=== PATIENT | female | born 1970 | race Asian ===

== ENCOUNTER 2017-08-04 01:44 | Inpatient (IN) | payer BC ==
[2017-08-04] MEDS ORDERED: ONDANSETRON 4 MG/2 ML VIAL IVP ONE (01:52)
[2017-08-04] MEDS ORDERED: NS 1,000 ML IV ONE ×2 (01:52→03:26)
[2017-08-04] MEDS ORDERED: DIAZEPAM 10 MG/2 ML SYR IVP ONE (01:53)
[2017-08-04] MEDS ORDERED: MECLIZINE HCL 25 MG TAB PO ONE (01:54)
--- NOTE | 2017-08-04 01:58 | EDPHY ---
H & P HPI/ROS: HPI CHIEF COMPLAINT: Nausea, vomiting, room spinning 7:00 p.m. or approximately 7 hr ago. HISTORY OF PRESENT ILLNESS: Patient is a very pleasant 47-year-old female she is visiting from [place] she just arrived to [facility] yesterday. She is here for the weekend with her friends. She presents emergency room with dizziness that she describes as room spinning that started at 7:00 p.m. after she started having nausea with vomiting. She distally reports she had some left -sided headache very mild throbbing 3/10. She initially reports that around 7: 00 p.m. she did not feel well she was somewhat nauseous she skipped dinner. She then began feeling worse with room spinning and dizziness and lightheadedness. She then vomited 3 times prior to arrival. She denies any chest pain. Denies neck pain. Pain in her head is 3/10 left-sided throbbing in nature. She states when she goes to move her head or go to sit up the dizziness room spinning sensation around her gets worse. She endorses 1 Rowan around 1:00 p.m.. She denies illicit drugs specifically denies marijuana denies tobacco or large consumption of alcohol. Denies chest pain. She denies focal numbness or tingling. Denies focal weakness. She does state when she walks she does feel like she is being pulled to the left. Past Medical History: Denies medical history Past Surgical History: Denies surgical history Social History: Denies daily use Family History: Noncontributory ROS REVIEW OF SYSTEMS: A comprehensive 10 point review of systems is otherwise negative aside from elements mentioned in the history of present illness. Exam Constitutional appears nontoxic, but nauseous triage nursing summary reviewed, vital signs reviewed, awake/alert. Hypertensive upon arrival Eyes normal conjunctivae and sclera, EOMI, PERRLA. HENT normal inspection, atraumatic, moist mucus membranes, no epistaxis, neck supple/ no meningismus, no raccoon eyes. Respiratory clear to auscultation bilaterally, normal breath sounds, no respiratory distress, no wheezing. Cardiovascular rate normal, regular rhythm, no murmur, no edema, distal pulses normal. Gastrointestinal soft, non-tender, no rebound, no guarding, normal bowel sounds, no distension, no pulsatile mass. Genitourinary no CVA tenderness. Musculoskeletal no midline vertebral tenderness, full range of motion, no calf swelling, no tenderness of extremities, no meningismus, good pulses, neurovascularly intact. Skin pink, warm, & dry, no rash, skin atraumatic. Neurologic on exam she does have vertical nystagmus seen. Additionally she also has some horizontal nystagmus. Otherwise her neurological exam is unremarkable. awake, alert and oriented x 3, AAOx3, moves all 4 extremities equally, motor intact, sensory intact, CN II-XII intact, normal cerebellar, normal vision, normal speech. Psychiatric normal mood/affect. Heme/Lymph/Immune no lymphadenopathy. Differential Diagnosis: Includes but is not limited to in a particular order benign positional vertigo, cerebellar stroke, electrolyte disturbance, dehydration, altitude illness, infection Medical Decision Making: Plan for this patient IV established with IV fluid bolus, 1 L normal saline, IV Zofran for nausea, meclizine and Valium to see if this improves her dizziness, check blood work, urinalysis, CT head without contrast rule out bleed, MRI to evaluate posterior cerebellar region for cerebellar infarct. Re-evaluation: EKG interpretation by me on record in [facility] system. Impression time of EKG 2:05 a.m., sinus rhythm rate of 79. Diffuse T-wave abnormalities specifically seen in V1 V2 V3 V4 lead 3 and AVF. No old EKG to compare this to. There is no ST elevation. CT scan head without contrast called to me by Dr. Irvin negative for acute bleed. ED x-ray chest one view negative cardiopulmonary disease. 0336: I did update the patient about her dizziness and results of her MRI and CT. MRI does not show a cerebellar infarct. CT scan is unremarkable bleed. Blood work is reassuring. Will admit to the hospitalist service. Reason for admission ongoing dizziness. Unable to move her head. Ongoing nausea vomiting. Spoke with the hospitalist service Dr. Holm will admit. Source: Patient, EMS Constitutional: Initial Vital Signs Temperature (C) 36.6 C 08/04/17 01:40 Heart Rate 69 08/04/17 01:40 Respiratory Rate 18 08/04/17 01:40 Blood Pressure 182/106 H 08/04/17 01:40 O2 Sat (%) 98 08/04/17 01:40 O2 Delivery Mode Room Air Allergies/Adverse Reactions: No Known Allergies Allergy (Unverified 08/04/17 01:56) Home Medications: Medication Instructions Recorded NK [No Known Home Meds] 08/04/17 Medical Decision Making - Data Points Laboratory Results: Laboratory Results 08/04/17 02:00 08/04/17 02:00 08/04/17 08/04/17 08/04/17 02:00 02:00 02:00 WBC RBC Hgb Hct MCV MCH MCHC RDW Plt Count MPV Neut % (Auto) Lymph % (Auto) [place] % (Auto) Eos % (Auto) Baso % (Auto) Nucleat RBC Rel Count Absolute Neuts (auto) Absolute Lymphs (auto) Absolute Monos (auto) Absolute Eos (auto) Absolute Basos (auto) Absolute Nucleated RBC Immature Gran % Immature Gran # PT 12.4 SEC SEC (12.0-15.0) INR 0.90 (0.83-1.16) Sodium 142 mEq/L mEq/L (134-144) Potassium 3.5 mEq/L mEq/L (3.5-5.2) Chloride 106 mEq/L mEq/L (97-110) Carbon Dioxide 21 mEq/l L mEq/l (22-31) Anion Gap 15 mEq/L mEq/L (8-16) BUN 11 mg/dL mg/dL (7-23) Creatinine 0.6 mg/dL mg/dL (0.6-1.0) Estimated GFR > 60 Glucose 173 mg/dL H mg/dL (70-100) Calcium 9.4 mg/dL mg/dL (8.5-10.4) Troponin I < 0.012 ng/mL ng/mL (0.000-0.034) Beta HCG, Qual NEGATIVE Ethyl Alcohol < 10 mg/dL mg/dL (0-10) 08/04/17 02:00 WBC 8.94 10^3/uL 10^3/uL (3.80-9.50) RBC 5.21 10^6/uL 10^6/uL (4.18-5.33) Hgb 12.9 g/dL g/dL (12.6-16.3) Hct 39.5 % % (38.0-47.0) MCV 75.8 fL L fL (81.5-99.8) MCH 24.8 pg L pg (27.9-34.1) MCHC 32.7 g/dL g/dL (32.4-36.7) RDW 15.2 % % (11.5-15.2) Plt Count 336 10^3/uL 10^3/uL (150-400) MPV 9.8 fL fL (8.7-11.7) Neut % (Auto) 70.9 % % (39.3-74.2) Lymph % (Auto) 21.7 % % (15.0-45.0) [place] % (Auto) 5.9 % % (4.5-13.0) Eos % (Auto) 0.6 % % (0.6-7.6) Baso % (Auto) 0.7 % % (0.3-1.7) Nucleat RBC Rel Count 0.0 % % (0.0-0.2) Absolute Neuts (auto) 6.34 10^3/uL 10^3/uL (1.70-6.50) Absolute Lymphs (auto) 1.94 10^3/uL 10^3/uL (1.00-3.00) Absolute Monos (auto) 0.53 10^3/uL 10^3/uL (0.30-0.80) Absolute Eos (auto) 0.05 10^3/uL 10^3/uL (0.03-0.40) Absolute Basos (auto) 0.06 10^3/uL 10^3/uL (0.02-0.10) Absolute Nucleated RBC 0.00 10^3/uL 10^3/uL (0-0.01) Immature Gran % 0.2 % % (0.0-1.1) Immature Gran # 0.02 10^3/uL 10^3/uL (0.00-0.10) PT INR Sodium Potassium Chloride Carbon Dioxide Anion Gap BUN Creatinine Estimated GFR Glucose Calcium Troponin I Beta HCG, Qual Ethyl Alcohol Medications Given: Discontinued Medications Diazepam (Valium Injection) 2.5 mg IVP EDNOW ONE Stop: 08/04/17 01:54 Last Admin: 08/04/17 02:39 Dose: 2.5 mg Sodium Chloride (Ns) 1,000 mls @ 0 mls/hr IV ONCE ONE; Wide Open PRN Reason: Protocol Stop: 08/04/17 01:53 Last Admin: 08/04/17 02:36 Dose: 1,000 mls Meclizine HCl (Meclizine Hcl) 25 mg PO EDNOW ONE Stop: 08/04/17 01:55 Last Admin: 08/04/17 02:44 Dose: 25 mg Ondansetron HCl (Zofran) 4 mg IVP EDNOW ONE Stop: 08/04/17 01:53 Last Admin: 08/04/17 02:36 Dose: 4 mg Departure - Departure Disposition: [facility] Inpatient Acute Clinical Impression: Vertigo Condition: Fair
--- NOTE | 2017-08-04 02:06 | CPEKG ---
Heart Rate: 79 RR Interval: 759 P-R Interval: 156 QRSD Interval: 94 QT Interval: 444 QTC Interval: 510 P [place]: 26 QRS [place]: 6 T Wave [place]: -25 EKG Severity - ABNORMAL ECG - EKG Impression: SINUS RHYTHM EKG Impression: NONSPECIFIC T ABNORMALITIES, INFERIOR LEADS EKG Impression: BORDERLINE PROLONGED QT INTERVAL Electronically Signed By: Andrew aDmon 04-Aug-2017 07:06:53
[2017-08-04 02:16] LABS: % IMMATURE GRANULYOCYTES 0.2 % (0.0-1.1); ABSOLUTE IMMATURE GRANULOCYTES 0.02 10^3/uL (0.00-0.10); ADD DIFF? NO; ADD MORPH? NO; ADD SCAN? NO; ATYPICAL LYMPHOCYTE FLAG 0 (0-99); FRAGMENT RBC FLAG 20 (0-99); HEMATOCRIT 39.5 % (38.0-47.0); HEMOGLOBIN 12.9 g/dL (12.6-16.3); LEFT SHIFT FLG 0 (0-99); LIPEMIA HEMOLYSIS FLAG 80 (0-99); MEAN CELL HEMOGLOBIN 24.8 pg (27.9-34.1); MEAN CELL HEMOGLOBIN CONCENTR. 32.7 g/dL (32.4-36.7); MEAN CELL VOLUME 75.8 fL (81.5-99.8); MEAN PLATELET VOLUME 9.8 fL (8.7-11.7); PLATELET CLUMPS FLAG 20 (0-99); PLATELET COUNT 336 10^3/uL (150-400); RED BLOOD CELL COUNT 5.21 10^6/uL (4.18-5.33); RED CELL DISTRIBUTION WIDTH 15.2 % (11.5-15.2)
[2017-08-04 02:23] LABS: ANION GAP 15 mEq/L (8-16); CALCIUM 9.4 mg/dL (8.5-10.4); CARBON DIOXIDE 21 mEq/l (22-31); CHLORIDE 106 mEq/L (97-110); CREATININE 0.6 mg/dL (0.6-1.0); ETHANOL SERUM < 10 mg/dL (0-10); GLOMERULAR FILTRATION RATE > 60; GLUCOSE 173 mg/dL (70-100); POTASSIUM 3.5 mEq/L (3.5-5.2); SODIUM 142 mEq/L (134-144)
[2017-08-04 02:25] LABS: INR 0.9 (0.83-1.16); PROTIME(PATIENT) 12.4 SEC (12.0-15.0)
[2017-08-04 02:34] LABS: TROPONIN I < 0.012 ng/mL (0.000-0.034)
[2017-08-04] MEDS ORDERED: ONDANSETRON 4 MG/2 ML VIAL IVP PRN (03:26)
[2017-08-04] MEDS ORDERED: ONDANSETRON DISINTEGRATING 4 MG TAB PO PRN (03:26)
--- NOTE | 2017-08-04 03:44 | PDGENHP ---
History and Physical - Chief Complaint Dizziness - History of Present Illness 47 yo F w/ no PMHx present with dizziness. Symptoms started this afternoon. She feels like the room is spinning around her and she has been severely symptomatic. Of note she had URI symptoms for a few days before traveling to [place] from [place]. She underwent a CT and MRI in the ED, both of which were normal. She remains symptomatic after meclizine and Valium so she was admitted for observation noting her inability to ambulate. History Information - Allergies/Home Medication List Allergies/Adverse Reactions: No Known Allergies Allergy (Unverified 08/04/17 01:56) Home Medications: NK [No Known Home Meds] 08/04/17 [Last Taken Unknown] I have personally reviewed and updated: family history, medical history - Past Medical History no pertinent PMH - Family History Additional family history: Denies family hx of vertigo - Social History Smoking Status: Never smoked Review of Systems Review of Systems: ROS: 10pt was reviewed & negative except for what was stated in HPI & below Physical Exam Physical Exam: Temp Pulse Resp BP Pulse Ox 36.6 C 69 18 182/106 H 98 08/04/17 01:40 08/04/17 01:40 08/04/17 01:40 08/04/17 01:40 08/04/17 01:40 Constitutional: appears nourished, uncomfortable Eyes: PERRL, EOMI, other (R end-stage horizontal nystagmus) Ears, Nose, Mouth, Throat: moist mucous membranes, no oral mucosal ulcers Cardiovascular: regular rate and rhythym, no murmur, rub, or gallop Respiratory: no respiratory distress, clear to auscultation Skin: warm, normal color Musculoskeletal: full muscle strength, no muscle tenderness Neurologic: AAOx3, CN II-XII Intact Psychiatric: interacting appropriately, not anxious Lab Data & Imaging Review 08/04/17 02:00 08/04/17 02:00 WBC 8.94 10^3/uL (3.80-9.50) 08/04/17 02:00 RBC 5.21 10^6/uL (4.18-5.33) 08/04/17 02:00 Hgb 12.9 g/dL (12.6-16.3) 08/04/17 02:00 Hct 39.5 % (38.0-47.0) 08/04/17 02:00 MCV 75.8 fL (81.5-99.8) L 08/04/17 02:00 MCH 24.8 pg (27.9-34.1) L 08/04/17 02:00 MCHC 32.7 g/dL (32.4-36.7) 08/04/17 02:00 RDW 15.2 % (11.5-15.2) 08/04/17 02:00 Plt Count 336 10^3/uL (150-400) 08/04/17 02:00 MPV 9.8 fL (8.7-11.7) 08/04/17 02:00 Neut % (Auto) 70.9 % (39.3-74.2) 08/04/17 02:00 Lymph % (Auto) 21.7 % (15.0-45.0) 08/04/17 02:00 [place] % (Auto) 5.9 % (4.5-13.0) 08/04/17 02:00 Eos % (Auto) 0.6 % (0.6-7.6) 08/04/17 02:00 Baso % (Auto) 0.7 % (0.3-1.7) 08/04/17 02:00 Nucleat RBC Rel Count 0.0 % (0.0-0.2) 08/04/17 02:00 Absolute Neuts (auto) 6.34 10^3/uL (1.70-6.50) 08/04/17 02:00 Absolute Lymphs (auto) 1.94 10^3/uL (1.00-3.00) 08/04/17 02:00 Absolute Monos (auto) 0.53 10^3/uL (0.30-0.80) 08/04/17 02:00 Absolute Eos (auto) 0.05 10^3/uL (0.03-0.40) 08/04/17 02:00 Absolute Basos (auto) 0.06 10^3/uL (0.02-0.10) 08/04/17 02:00 Absolute Nucleated RBC 0.00 10^3/uL (0-0.01) 08/04/17 02:00 Immature Gran % 0.2 % (0.0-1.1) 08/04/17 02:00 Immature Gran # 0.02 10^3/uL (0.00-0.10) 08/04/17 02:00 PT 12.4 SEC (12.0-15.0) 08/04/17 02:00 INR 0.90 (0.83-1.16) 08/04/17 02:00 Sodium 142 mEq/L (134-144) 08/04/17 02:00 Potassium 3.5 mEq/L (3.5-5.2) 08/04/17 02:00 Chloride 106 mEq/L (97-110) 08/04/17 02:00 Carbon Dioxide 21 mEq/l (22-31) L 08/04/17 02:00 Anion Gap 15 mEq/L (8-16) 08/04/17 02:00 BUN 11 mg/dL (7-23) 08/04/17 02:00 Creatinine 0.6 mg/dL (0.6-1.0) 08/04/17 02:00 Estimated GFR > 60 08/04/17 02:00 Glucose 173 mg/dL (70-100) H 08/04/17 02:00 Calcium 9.4 mg/dL (8.5-10.4) 08/04/17 02:00 Troponin I < 0.012 ng/mL (0.000-0.034) 08/04/17 02:00 Beta HCG, Qual NEGATIVE 08/04/17 02:00 Ethyl Alcohol < 10 mg/dL (0-10) 08/04/17 02:00 Imaging Review: CTH and MRI brain with no acute findings. Visualized and Interpreted EKG results: Yes EKG Interpretation: Positive for: normal sinsus rhythm, other (Non-specific T wave abnormalities noted) Assessment & Plan Assessment: 47 yo F w/ no significant PMHx presents with vertigo. Plan: 1. Vertigo - With acute onset on day of admission and no prior episodes. MRI brain and CTH unremarkable, pointing towards a peripheral etiology. Noting URI symptoms for the few days prior to presentation, I suspect viral labyrinthitis as most likely diagnosis. - Supportive care with mIVF, meclizine PRN, Valium PRN, and Zofran PRN - PT evaluation ordered Diet - Regular Code - Full Ppx - Low risk Dispo - Admit to observation status
[2017-08-04 04:36] LABS: COLOR YELLOW; LEUKOCYTE ESTERASE,URINE NEGATIVE (NEGATIVE); NITRITE,URINE NEGATIVE (NEGATIVE)
[2017-08-04 04:39] LABS: AMORPHOUS PRESENT /hpf (NONE-1+); RBC,URINE 50-182 /hpf (0-3)
[2017-08-04 04:40] LABS: WBC,URINE NONE SEEN /hpf (0-3)
[2017-08-04] MEDS: MECLIZINE HCL 25 MG TAB PO PRN ×2 (04:57→16:23)
[2017-08-04 05:38] LABS: ANION GAP 16 mEq/L (8-16); CALCIUM 8.7 mg/dL (8.5-10.4); CARBON DIOXIDE 21 mEq/l (22-31); CHLORIDE 107 mEq/L (97-110); CREATININE 0.6 mg/dL (0.6-1.0); GLOMERULAR FILTRATION RATE > 60; GLUCOSE 123 mg/dL (70-100); SODIUM 144 mEq/L (134-144)
[2017-08-04] MEDS ORDERED: predniSONE 20 MG TAB PO ONE (16:11)
--- NOTE | 2017-08-04 16:18 | HOSPPROG ---
Hospitalist Progress Note Assessment/Plan: DIAGNOSES: # Severe peripheral vertigo occurring 1 week after upper respiratory infection symptoms, with constant vertigo symptoms aggravated by even minimal movement and severe retching and vomiting at onset -this picture as described above is most consistent with post viral vestibular neuronitis, and features noted that are inconsistent with a central neurologic vertigo include severe symptoms at rest, lack of other neurologic symptoms, and normal MRI At this time she has hardly used any medicine and in fact has had no medicine for more than 12 hr and her vomiting has stopped. I think was starting to see some spontaneous improvement which is typical of these episodes which resolve usually in 1-3 days to the point of very minor symptoms. We could add however make her a notably more comfortable with more aggressive medication at this time. She is too ill to go home at this time PLANS: -I will add some prednisone -will talk to the nurse and have her get more medication -expect she should be able to discharge in 1-2 days; she is supposed to fly back to [place], and that will be safe whenever she feels like she can handle the movement of the airplane SUBJECTIVE: Patient feels somewhat better has stopped vomiting, but still quite nauseous, still with bad vertigo, and now some mild headache Her vertigo since its onset has been constant although aggravated by movement of even a minor degree, and there are no other neurologic symptoms No febrile symptoms, no earache Physical therapist came and saw the patient and attempted Vy maneuvers however the Vy maneuvers if anything produced minimal improvement in her symptoms OBJECTIVE Vitals reviewed: Mildly hypertensive and mildly tachypneic otherwise stable without fever Exam: alert, looks quite uncomfortable from severe vertigo oriented, speech normal, no weakness, skin warm dry color ok lungs clear BSs heart regular abd soft nondistended nontender, bowel sounds present limbs warm, no edema iv site ok MRI scan I personally reviewed images, no acute or other abnormalities noted Objective: Vital Signs Temp Pulse Resp BP Pulse Ox 36.2 C 78 16 131/95 H 98 08/04/17 15:29 08/04/17 15:29 08/04/17 15:29 08/04/17 15:29 08/04/17 15:29 Laboratory Results 08/04/17 05:07 08/03/17 08/04/17 08/05/17 06:59 06:59 06:59 Intake Total 1100 300 Output Total 200 875 Balance 900 -575 PT 12.4 SEC (12.0-15.0) 08/04/17 02:00 INR 0.90 (0.83-1.16) 08/04/17 02:00 ICD10 Worksheet Patient Problems: Problems Problem Status Onset Vertigo Acute
[2017-08-04] MEDS: DIAZEPAM 5 MG TAB PO PRN (16:24)
[2017-08-04] MEDS: NS 1,000 ML IV SCH ×2 (16:32→20:40)
[2017-08-04] MEDS ORDERED: ALBUTEROL 200 PUFFS/18 GM MDI IH PRN (18:30)
[2017-08-04] MEDS: ACETAMINOPHEN 325 MG TAB PO PRN (20:46)
[2017-08-05] MEDS: NS 1,000 ML IV SCH (05:49)
[2017-08-05] MEDS: MECLIZINE HCL 25 MG TAB PO PRN ×2 (05:49→15:15)
[2017-08-05] MEDS ORDERED: predniSONE 20 MG TAB PO SCH (09:00)
[2017-08-05] MEDS: ACETAMINOPHEN 325 MG TAB PO PRN ×3 (09:38→21:41)
--- NOTE | 2017-08-05 10:35 | HOSPPROG ---
Hospitalist Progress Note Assessment/Plan: Patient is a 47 y/o female who has no significant hx who presented w vertigo. Today is my first encounter w the patient, chart reviewed. *vertigo, peripheral -MRI fo the brain negative, CT unremarkable -omar post viral vestibular neuronitis -started on steroids -reviewed up- to- date and dosing -recommendation is 60 mg daily x 5 days, then 40 mg on day 6, 30 mg on day 7, 20 mg on day 8, 10 mg on day 9 and then 5 mg day 10 *hematuria -should get a repeat UA and f/u with PCP *HTN -per her this is not her baseline -will monitor *tachycardia -evaluated her twice today, heart rate in low 100 -will get an ekg now *Plan: increase prednisone dose, get a 12 lead. Explained to patient and her that it can take 72 hours for symptoms to improve. Will initiate LMWH. Patient in bed frequently. Subjective: Hoda has no specific complaints except that her symptoms improved earlier and then returned. Objective: Vital Signs Temp Pulse Resp BP Pulse Ox 36.8 C 87 16 131/74 H 96 08/05/17 07:39 08/05/17 07:39 08/05/17 07:39 08/05/17 07:39 08/05/17 07:39 Laboratory Results 08/04/17 05:07 08/04/17 08/05/17 08/06/17 05:59 05:59 05:59 Intake Total 1050 1750 Output Total 50 2025 Balance 1000 -275 PT 12.4 SEC (12.0-15.0) 08/04/17 02:00 INR 0.90 (0.83-1.16) 08/04/17 02:00 - Physical Exam Constitutional: no apparent distress, appears nourished Eyes: PERRL Ears, Nose, Mouth, Throat: hearing normal Cardiovascular: regular rate and rhythym Respiratory: no respiratory distress Gastrointestinal: normoactive bowel sounds Skin: normal color Neurologic: AAOx3 Psychiatric: interacting appropriately, not anxious ICD10 Worksheet Patient Problems: Problems Problem Status Onset Vertigo Acute
[2017-08-05] MEDS ORDERED: predniSONE 20 MG TAB PO ONE (10:55)
--- NOTE | 2017-08-05 11:58 | ASMTCMCOM ---
CM Note CM Note Notes: Patient admitted with severe vertigo. She is visiting [place] from [place]. Per hospitalist, patient still c/o dizziness. She has been encouraged to sit up in bed and see how she tolerates movement and light. Her discharge is pending per the above - but when she is feeling well enough, she will go with her who has flown in from [place]. Current CM Discharge plan: home with Date Signed: 08/05/2017 11:58 AM Electronically Signed By:Soco Costa RN
[2017-08-05] MEDS: ENOXAPARIN 40 MG/0.4 ML SYR SC SCH (16:56)
--- NOTE | 2017-08-05 17:34 | PDMN ---
Medical Necessity Medical necessity: Pt meets INPT criteria per [employer]/MD as of 08/05/17 and [facility] [place] Dizz[place] (est. LOS >2 MN for ongoing eval/mgmt of severe peripheral vertigo with sx aggravated by even minimal movement; and htn, tachycardia per progress notes).
--- NOTE | 2017-08-05 21:01 | CPEKG ---
Heart Rate: 92 RR Interval: 652 P-R Interval: 136 QRSD Interval: 86 QT Interval: 380 QTC Interval: 471 P [place]: 54 QRS [place]: -2 T Wave [place]: -16 EKG Severity - BORDERLINE ECG - EKG Impression: SINUS RHYTHM EKG Impression: BORDERLINE T ABNORMALITIES, DIFFUSE LEADS EKG Impression: T WAVE ABNORMALITIES ARE MORE PROMINENT THAN 04-AUG-2017 Electronically Signed By: Caroline Romo 06-Aug-2017 06:57:49
[2017-08-05] MEDS: DIAZEPAM 5 MG TAB PO PRN (21:41)
[2017-08-06] MEDS: ACETAMINOPHEN 325 MG TAB PO PRN ×2 (08:03→14:39)
[2017-08-06] MEDS: ENOXAPARIN 40 MG/0.4 ML SYR SC SCH (08:04)
[2017-08-06] MEDS: predniSONE 20 MG TAB PO SCH (08:04)
[2017-08-06] MEDS: MECLIZINE HCL 25 MG TAB PO PRN (08:04)
--- NOTE | 2017-08-06 10:01 | HOSPPROG ---
Hospitalist Progress Note Assessment/Plan: Patient is a 47 y/o female who has no significant hx who presented w vertigo. *vertigo, peripheral -MRI of the brain negative, CT unremarkable -likely post viral vestibular neuronitis -started on steroids -reviewed up- to- date and dosing -recommendation is 60 mg daily x 5 days, then 40 mg on day 6, 30 mg on day 7, 20 mg on day 8, 10 mg on day 9 and then 5 mg day 10 -reviewed her care, nasimaeulalio ENT. recommendation was to continue treatment as being done. patient has no hearing loss, no ear pain. *hematuria -should get a repeat UA and f/u with PCP *HTN -per her this is not her baseline -bp is better when manually checked -will need further f/u with her PCP *tachycardia -resolved *Plan: if Hoda can ambulate without difficulty and cont to be able to eat; will dc her home Subjective: Hoda is c/o ongoing dizziness. Objective: Vital Signs Temp Pulse Resp BP Pulse Ox 36.9 C 79 12 124/84 H 97 08/06/17 07:25 08/06/17 07:25 08/06/17 07:25 08/06/17 08:38 08/06/17 07:25 08/05/17 08/06/17 08/07/17 05:59 05:59 05:59 Intake Total 450 Output Total 2100 300 Balance -1650 -300 PT 12.4 SEC (12.0-15.0) 08/04/17 02:00 INR 0.90 (0.83-1.16) 08/04/17 02:00 - Physical Exam Constitutional: no apparent distress, appears nourished, not in pain Eyes: PERRL Ears, Nose, Mouth, Throat: hearing normal Cardiovascular: regular rate and rhythym Respiratory: no respiratory distress Skin: warm Musculoskeletal: full muscle strength Neurologic: AAOx3 Psychiatric: interacting appropriately ICD10 Worksheet Patient Problems: Problems Problem Status Onset Vertigo Acute
--- NOTE | 2017-08-07 03:04 | GCON ---
[f rep st] CONSULTATION DATE OF CONSULTATION: 08/06/2017 CHIEF COMPLAINT: Vertigo. HISTORY OF PRESENT ILLNESS: This is a pleasant 47-year-old woman who had a preceding upper respiratory infection. She is from [place] but was down visiting family. She had an acute onset of vertigo on Saturday evening and came to the ER. An MRI of her brain as well as a head CT was done which was normal. She was having some nausea at that time, she continued to remain symptomatic after meclizine and Valium, so she was admitted for observation since she could not ambulate well. She denies any hearing loss. She denies any significant ear fullness or pressure, though does have a slight dull ache on the left side. She feels like when she walks she falls slightly to the left. She denies any nausea or vomiting now. She denies any spinning. She just states that she feels off balance, especially when she makes quick movements. She also states she gets double vision, but this is just right when she opens her eyes and then this clears. She does wear glasses and is not wearing them now. She denies any other neurologic symptoms. She denies any ulcers or lesions on the ear or sharp pains, and she has no other significant complaints. PAST MEDICAL HISTORY: Basically no significant past medical history. She is a nonsmoker. PHYSICAL EXAMINATION: VITAL SIGNS: Stable. She is on room air. GENERAL: She is awake, alert, in no apparent distress. HEENT: Cranial nerves 2-12 are grossly intact. House-Brackmann 1 bilaterally and symmetric. Ears show normal TM. No middle ear effusion on either side. Valsalva positive bilaterally. Pupils are equal, round, and reactive to light, and extraocular movements are intact bilaterally. Sensation is intact throughout. Nose shows a lot of crusting and dried blood on both sides, more on the left. Oral cavity and oropharynx shows a tongue that is mobile and midline. Palate elevates symmetrically. NECK: Shows no lymphadenopathy or masses. Hearing is normal bilaterally to finger rub. ASSESSMENT AND PLAN: This is a patient with what sounds like vestibular neuronitis. She is already getting prednisone 60 mg. She was also getting meclizine. I would probably recommend stopping the meclizine as this really does not help that much and can prevent compensation. I discussed with her the typical course of this disease, which is somewhat prolonged compensation, although hopefully she is over the worst of it. I do recommend getting a full audiogram, although they are trying to go back to [place] tomorrow, so they can follow up with an ENT there, since she has no acute complaints. She does have some discomfort in the left ear, although there is no middle ear effusion. This could just be related to some eustachian tube dysfunction since it is a dull ache on that side, and her nose looks significantly congested and dry on that side as well. She should follow up with an ENT in [place], and please call or let me know if you have any further questions. I think she is okay to fly, as she should not have any significant difficulty with that from at least a middle ear standpoint. Thank you for the consultation. /[id number]/MODL MTDD
[2017-08-07 08:16] VITALS: BP 134/76; PULSE 99; RESP 18; TEMP 97.5; O2SAT 94
--- NOTE | 2017-08-07 08:21 | HOSPPROG ---
Hospitalist Progress Note Assessment/Plan: Patient is a 47 y/o female who has no significant hx who presented w vertigo. *vertigo, peripheral -MRI of the brain negative, CT unremarkable -likely post viral vestibular neuronitis -prednisone 60 mg daily x 5 days, then 40 mg on day 6, 30 mg on day 7, 20 mg on day 8, 10 mg on day 9 and then 5 mg day 10 -appreciate ENT *hematuria -should get a repeat UA and f/u with PCP *HTN -per her this is not her baseline -bp is better when manually checked -will need further f/u with her PCP *tachycardia -resolved *Plan: dc home Subjective: Hoda is feeling better this morning/ says she leans to the left w ambulation. Objective: Vital Signs Temp Pulse Resp BP Pulse Ox 36.4 C 99 18 134/76 H 94 08/07/17 08:10 08/07/17 08:10 08/07/17 08:10 08/07/17 08:10 08/07/17 08:10 08/06/17 08/07/17 08/08/17 05:59 05:59 05:59 Intake Total 450 450 Output Total 2100 1500 Balance -1650 -1050 PT 12.4 SEC (12.0-15.0) 08/04/17 02:00 INR 0.90 (0.83-1.16) 08/04/17 02:00 - Physical Exam Constitutional: no apparent distress, appears nourished, not in pain Eyes: PERRL Ears, Nose, Mouth, Throat: hearing normal Respiratory: no respiratory distress Skin: warm Neurologic: AAOx3 ICD10 Worksheet Patient Problems: Problems Problem Status Onset Vertigo Acute
[2017-08-07] MEDS: ACETAMINOPHEN 325 MG TAB PO PRN (08:49)
[2017-08-07] MEDS: predniSONE 20 MG TAB PO SCH (10:17)
--- NOTE | 2017-08-07 10:21 | GDS ---
[f rep st] DISCHARGE SUMMARY DISCHARGE DIAGNOSES: 1. Peripheral vertigo, likely postviral vestibular neuronitis. 2. Hematuria. 3. Hypertension. 4. Tachycardia. CONSULTATIONS: Dr. Jessica Corera with ENT. HISTORY: Briefly, the patient is a 47-year-old woman who had an upper respiratory infection. She is from [place], but was here in [place] visiting friends. She had an acute onset of vertigo on evening and came to the ER. An MRI of her brain, as well as a CT were performed. These were not ed to be normal. She also had some nausea. She mainly was feeling off balance and had emesis, which resolved over time. She continued to have difficulty with walking and kept veering to the left. Cesar oleary was seen by Dr. Jessica Correa with Ears, Nose and Throat. She agreed that the patient likely has vestibular neuronitis, and recommendation was to continue the prednisone. Recommendation was to stop the meclizine. Today, the patient is feeling better, but still slightly off-balance. The recommend ation is for her to follow up with an outpatient Ear, Nose, Throat doctor when she returns to the [facility]. HOSPITAL COURSE: 1. Vertigo that is peripheral, likely postviral vestibular neuronitis. She was treated with prednis one. She will be weaned off this over the next several days. Further followup with ENT. 2. Hematuria. Recommending she get a further UA and follow up with her primary care provider. 3. Hypertension. This has been somewhat intermittent during her stay. Blood pressure was better wh en nursing staff would do manual cuff pressures. Recommendation is for her to get a blood pressure c uff and monitor it at home and follow up with her primary care provider. 4. Tachycardia, resolved. DISCHARGE CONDITION: Stable. Blood pressure is 134/76, O2 sats on room air 94%. Respiratory rate is 18. Pulse is 99. Temperature is 36.4 Celsius. DISCHARGE MEDICATIONS: Please see the EMR. DISCHARGE INSTRUCTIONS: 1. Further followup with ENT and get an audiogram. 2. She will get a prescription for prednisone, to be weaned off. She can start this tomorrow ryan valdes. 3. To stay well hydrated. 4. To get further evaluation in regard to her blood pressure and her hematuria. Greater than 30 minutes discharging and coordinating the patient's care. /[id number]/MODL
--- NOTE | 2017-08-07 10:47 | ASDISCHSUM ---
Discharge Information Plan Status: Medically Cleared to Leave: Discharge Date: CM D/C Disposition: ADT D/C Disposition: Projected Discharge Date: Transportation at D/C: Discharge Delay Reason: Follow-Up Date: Discharge Slot: Final Diagnosis: Placement Information Patient Contact Information Contact Name:ENEDINA Relationship:Friend Address: Work Phone: City: [facility] Phone: [facility] Code: Email: Financial Information Financial Class:HMO and PPO Plans Primary Plan Desc: OUT OF STATE PPO Primary Plan Number:[id number] Secondary Plan Desc: Secondary Plan Number: Assessment Information [facility] CM Progress Note CM Note CM Note Notes: Patient admitted with severe vertigo. She is visiting [place] from [place]. Per hospitalist, patient still c/o dizziness. She has been encouraged to sit up in bed and see how she tolerates movement and light. Her discharge is pending per the above - but when she is feeling well enough, she will go with her who has flown in from [place]. Current CM Discharge plan: home with Date Signed: 08/05/2017 11:58 AM Electronically Signed By:Soco Costa RN Intervention Information
[2017-08-07] MEDS: ENOXAPARIN 40 MG/0.4 ML SYR SC SCH (11:10)
== END 2017-08-07 12:30 | disposition home or self-care (01) | DRG 149 ==
LOC: F3N 04:10 → OBSVTOIN 08-05 15:53 → F1N 08-06 17:53
PROVIDERS: ADMIT Student in an Organized Health Care Education/Training Program; ATTEND Student in an Organized Health Care Education/Training Program
DX: H81.20 Vestibular neuronitis, unspecified ear (principal); I10 Essential (primary) hypertension; R31.9 Hematuria, unspecified; R00.0 Tachycardia, unspecified
CPT/HCPCS: 80305; 96374; 97112-GP; 97116-GP; 97161-GP; G0378; G0480; J1650; J2405